=== PATIENT | female | born 1980 | race Caucasian/White ===

== ENCOUNTER 2017-03-26 10:00 | Emergency (ER) | payer OTHER ==
[2017-03-26 10:07] VITALS: BP 134/76
--- NOTE | 2017-03-26 13:53 | UC ---
Skin Complaint HPI - HPI Summary HPI Summary: Patient presents with L middle finger swelling and redness at the base of the nail bed. 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 Hx of paronychias which she attempts to drain at home. She states this is becoming more painful, but is not fluctuant and cannot be drained. - History of Current Complaint Chief Complaint: UCUpperExtremity Time Seen by Provider: 03/26/17 11:08 Stated Complaint: SWOLLEN FINGER Hx Obtained From: Patient Hx Last Menstrual Period: 08/15/16 ?: No Onset/Duration: Sudden Onset Timing: Constant Onset Severity: Mild Current Severity: Mild Pain Intensity: 2 Pain Scale Used: 0-10 Numeric Location: Hand (Left) Character: Swelling, Pruritus, Pain Aggravating: Nothing Alleviating: Nothing Associated Signs & Symptoms: Positive: Joint Swelling Related History: Trauma - Allergy/Home Medications Allergies/Adverse Reactions: Allergies Allergy/AdvReac Type Severity Reaction Status Date / Time Amoxicillin Allergy Severe Rash Verified 08/21/16 20:48 Review of Systems Constitutional: Negative Skin: Other - erythema and swelling at base of the 3rd finger ENT: Negative Respiratory: Negative Cardiovascular: Negative Motor: Negative Musculoskeletal: Negative Neurological: Negative All Other Systems Reviewed And Are Negative: Yes PMH/Surg Hx/FS Hx/Imm Hx Previously Healthy: Yes - Surgical History Surgical History: Yes Surgery Procedure, Year, and Place: CERVICAL VERTEBRAE FUSION SURGERY 2009 - Family History Known Family History: Positive: Diabetes, Other - CHOLESTEROL - Social History Occupation: Employed Full-time Lives: With Family Alcohol Use: Occasionally Substance Use Type: None Smoking Status (MU): Never Smoked Tobacco - Immunization History Most Recent Influenza Vaccination: none Physical Exam Triage Information Reviewed: Yes Appearance: Well-Appearing, No Pain Distress, Well-Nourished Vital Signs: Initial Vital Signs Temp 98.0 F 03/26/17 10:03 Pulse 78 03/26/17 10:03 Resp 18 03/26/17 10:03 BP 134/76 03/26/17 10:03 Pulse Ox 100 03/26/17 10:03 Vital Signs Reviewed: Yes Eye Exam: Normal Eyes: Positive: Conjunctiva Clear Neck exam: Normal Neck: Positive: Supple, Nontender, No Lymphadenopathy Respiratory Exam: Normal Respiratory: Positive: Chest non-tender, Lungs clear Cardiovascular Exam: Normal Cardiovascular: Positive: RRR Musculoskeletal Exam: Normal Musculoskeletal: Positive: Strength Intact Neurological Exam: Normal Neurological: Positive: Alert Psychological: Positive: Normal Response To Family, Age Appropriate Behavior Skin: Positive: Other - erythema and swelling at base of the nail Course/Dx - Course Course Of Treatment: Keflex given for paronychia unable to drain with no fluctuance. - Differential Diagnoses - Skin Complaint Differential Diagnoses: Cellulitis, Other - paronychia, infection, cellulitis - Diagnoses Provider Diagnoses: paronychia Discharge - Discharge Plan Condition: Stable Disposition: HOME Prescriptions: Cephalexin CAP* [Keflex CAP*] 500 mg PO QID #28 cap MDD 4 Patient Education Materials: Paronychia (ED) Referrals: Mima Roca MD [Primary Care Provider] - Additional Instructions: Follow up with PCP. If symptoms worsen, come back to ED or come back to UC. Avoid biting your nail.s Warm soaks or compresses will help.
== END 2017-03-26 11:28 | disposition home or self-care (01) ==
LOC: UCEAST 10:00
DX: L03.012 Cellulitis of left finger (principal)
CPT/HCPCS: 99212; G0463

== ENCOUNTER 2017-03-29 12:57 | Emergency (ER) | payer OTHER ==
--- NOTE | 2017-03-29 13:42 | UC ---
Hand/Wrist HPI - HPI Summary HPI Summary: Seen here for redness and pain around finger nail of L 3rd finger 3 days ago. There was no fluctuant area at that time so she was placed on oral abx only. Here with increasing swelling and pain. Has been taking keflex. - History Of Current Complaint Chief Complaint: UCSkin Stated Complaint: SOFT TISSUE RECHECK Time Seen by Provider: 03/29/17 13:03 Hx Obtained From: Patient Hx Last Menstrual Period: now ?: No Onset/Duration: Gradual Onset, Lasting Days Severity Initially: Mild Severity Currently: Mild Character Of Pain: Aching, Throbbing Alleviating: Nothing Associated Signs And Symptoms: Positive: Swelling, Redness - Allergies/Home Medications Allergies/Adverse Reactions: Allergies Allergy/AdvReac Type Severity Reaction Status Date / Time Amoxicillin Allergy Severe Rash Verified 03/29/17 13:11 PMH/Surg Hx/FS Hx/Imm Hx - Surgical History Surgical History: Yes Surgery Procedure, Year, and Place: CERVICAL [place]TEBRAE FUSION SURGERY 2009 - Family History Known Family History: Positive: Diabetes, Other - CHOLESTEROL - Social History Lives: With Family Alcohol Use: Occasionally Substance Use Type: None Smoking Status (MU): Unknown if Ever Smoked - Immunization History Most Recent Influenza Vaccination: none Review of Systems Constitutional: Negative Skin: Other - redness, swelling L 3rd finger Eyes: Negative ENT: Negative Respiratory: Negative Cardiovascular: Negative Gastrointestinal: Negative Genitourinary: Negative Motor: Negative Neurovascular: Negative Musculoskeletal: Negative Neurological: Negative Psychological: Negative All Other Systems Reviewed And Are Negative: Yes Physical Exam Triage Information Reviewed: Yes Appearance: Well-Appearing, No Pain Distress, Well-Nourished Vital Signs: Initial Vital Signs Pulse 71 03/29/17 12:59 Resp 20 03/29/17 12:59 BP 146/90 03/29/17 12:59 Pulse Ox 99 03/29/17 12:59 Vital Signs Reviewed: Yes Eye Exam: Normal Eyes: Positive: Conjunctiva Clear ENT Exam: Normal ENT: Positive: Normal ENT inspection, Hearing grossly normal, Pharynx normal, TMs normal Dental Exam: Normal Neck exam: Normal Neck: Positive: Supple, Nontender, No Lymphadenopathy Respiratory Exam: Normal Respiratory: Positive: Chest non-tender, Lungs clear, Normal breath sounds, No respiratory distress, No accessory muscle use Cardiovascular Exam: Normal Cardiovascular: Positive: RRR, No Murmur Musculoskeletal Exam: Normal Musculoskeletal: Positive: Strength Intact, ROM Intact Neurological Exam: Other - pt became briefly unresponsive after drainage of paronychia with muscle twitching and temporary paleness. Within 5 minutes pt reports no longer feeling dizzy, normal VS, and color returned Neurological: Positive: Alert Psychological Exam: Normal Skin Exam: Other - swelling, red, fluctuant paronychia on L 3rd finger, abscess manually expressed on exam with large pus return. Hand/Wrist Course/Dx - Differential Dx/Diagnosis Provider Diagnoses: L 3rd finger paronychia drainage. vasovagal syncope. elevated blood pressure due to pain Discharge - Discharge Plan Condition: Stable Disposition: HOME Patient Education Materials: Paronychia (ED), Syncope (ED) Referrals: Mima Roca MD [Primary Care Provider] - If Needed Additional Instructions: You can finish your antibiotics as prescribed. I recommend you do warm soaks to the area 4 times per day for the next 2-3 days -- your symptoms should resolve now that the infection is drained. Come back here if you have increasing redness, pain, or streaking up the finger. Your fainting spell was a very common reaction to medical procedures and does not indicate any deeper problems. You should be seen again if you have new or ongoing dizziness or fainting.
[2017-03-29 13:57] VITALS: BP 115/73
== END 2017-03-29 13:49 | disposition home or self-care (01) ==
LOC: UCEAST 12:57
DX: L03.012 Cellulitis of left finger (principal); R55 Syncope and collapse; R03.0 Elevated blood-pressure reading, without diagnosis of hypertension; Z88.1 Allergy status to other antibiotic agents
CPT/HCPCS: 99211; G0463

== ENCOUNTER 2017-09-20 09:39 | Emergency (ER) | payer OTHER ==
[2017-09-20 09:56] VITALS: BP 138/72
--- NOTE | 2017-09-20 10:49 | UC ---
Throat Pain/Nasal Kan HPI - HPI Summary HPI Summary: TWO MONTHS SINUS CONGESTION, COUGH, SORETHROAT, CHILLS, RUNNY NOSE. BEGAN ALLERGIES, NO GETTING WORSE. - History of Current Complaint Chief Complaint: UCGeneralIllness Stated Complaint: RESP ISSUE Time Seen by Provider: 09/20/17 10:24 Hx Obtained From: Patient Hx Last Menstrual Period: now Onset/Duration: Gradual Onset Severity: Moderate Cough: Nonproductive Associated Signs & Symptoms: Positive: Sinus Discomfort, Nasal Discharge - Epiglottits Risk Factors Epiglottis Risk Factors: Negative - Allergies/Home Medications Allergies/Adverse Reactions: Allergies Allergy/AdvReac Type Severity Reaction Status Date / Time Amoxicillin Allergy Severe Rash Verified 03/29/17 13:11 PMH/Surg Hx/FS Hx/Imm Hx Previously Healthy: Yes - Surgical History Surgical History: Yes Surgery Procedure, Year, and Place: CERVICAL [place]TEBRAE FUSION SURGERY 2009 - Family History Known Family History: Positive: Diabetes, Other - CHOLESTEROL - Social History Occupation: Employed Full-time Lives: With Family Alcohol Use: Occasionally Substance Use Type: None Smoking Status (MU): Never Smoked Tobacco - Immunization History Most Recent Influenza Vaccination: none Review of Systems Constitutional: Chills Skin: Negative Eyes: Negative ENT: Nasal Discharge, Sinus Congestion, Sinus Pain/Tenderness Respiratory: Cough Cardiovascular: Negative Gastrointestinal: Negative Genitourinary: Negative Motor: Negative Neurovascular: Negative Musculoskeletal: Negative Neurological: Negative Psychological: Negative Is Patient Immunocompromised?: No All Other Systems Reviewed And Are Negative: Yes Physical Exam Triage Information Reviewed: Yes Appearance: Well-Appearing, No Pain Distress, Well-Nourished Vital Signs: Initial Vital Signs Temp 98 F 09/20/17 09:51 Pulse 62 09/20/17 09:51 BP 138/72 09/20/17 09:51 Pulse Ox 100 09/20/17 09:51 Vital Signs Reviewed: Yes Eye Exam: Normal ENT: Positive: Nasal congestion, Nasal drainage, TM bulging, TM dull Dental Exam: Normal Neck: Positive: Supple, Nontender, Enlarged Nodes @ - ANTERIOR CERVICAL CHAIN Respiratory Exam: Other - COUGH Respiratory: Positive: Chest non-tender, Lungs clear, Normal breath sounds, No respiratory distress, No accessory muscle use Cardiovascular Exam: Normal Cardiovascular: Positive: RRR, No Murmur, Pulses Normal, Brisk Capillary Refill Abdominal Exam: Normal Musculoskeletal Exam: Normal Musculoskeletal: Positive: Strength Intact Neurological Exam: Normal Psychological Exam: Normal Skin Exam: Normal Throat Pain/Nasal Course/Dx - Differential Dx/Diagnosis Differential Diagnosis/HQI/PQRI: Pharyngitis, Sinusitis, Tonsillitis Provider Diagnoses: SINUSITIS Discharge - Discharge Plan Condition: Stable Disposition: HOME Prescriptions: Benzonatate CAP* [Tessalon 100 MG CAP*] 100 mg PO TID PRN #15 cap PRN Reason: Cough DOXYcycline CAP(*) [DOXYcycline 100MG CAP(*)] 100 mg PO BID #20 cap Patient Education Materials: Sinusitis (ED), Acute Bronchitis (ED) Referrals: Mima Roca MD [Primary Care Provider] -
== END 2017-09-20 10:51 | disposition home or self-care (01) ==
LOC: UCEAST 09:39
DX: J32.9 Chronic sinusitis, unspecified (principal); Z88.1 Allergy status to other antibiotic agents
CPT/HCPCS: 99212; G0463

== ENCOUNTER 2021-11-23 16:52 | Inpatient (IN) ==
[2021-11-23 18:17] LABS: ABS Basophils 0.1 10^3/ul (0-0.2); ABS Eosinophils 0.6 10^3/ul (0-0.6); ABS Lymphocytes 2.2 10^3/ul (1.0-4.8); ABS Monocytes 1.1 10^3/ul (0-0.8); ABS Neutrophils 13.1 10^3/ul (1.5-7.7); Eosinophil % 3.6 %; Hematocrit 41 % (35-47); Hemoglobin 14.1 g/dL (12.0-16.0); Lymphocyte % 12.8 %; Mean Corpuscular HGB Conc 34 g/dL (31-36); Mean Corpuscular Hemoglobin 29 pg (27-31); Mean Corpuscular Volume 86 fL (80-97); Mean Platelet Volume 7.1 fL (7.4-10.4); Platelet Count 288 10^3/uL (150-450); Red Blood Count 4.82 10^6 /uL (3.70-4.87); Red Cell Distribution Width 15 % (10-15); White Blood Count 17.2 10^3/uL (3.5-10.8)
[2021-11-23 18:23] LABS: INR 1.12 (0.86-1.15)
[2021-11-23 18:33] LABS: Albumin 4.4 g/dL (3.2-5.2); Albumin/Globulin Ratio 1.3 (1-3); Calcium 9.6 mg/dL (8.6-10.3); Globulin 3.5 g/dL (2-4); Potassium 4.4 mmol/L (3.5-5.0); Total Bilirubin 0.8 mg/dL (0.2-1.0); Total Protein 7.9 g/dL (6.4-8.9); eGFR CKD-EPI 70.9 (>60)
[2021-11-23] MEDS ORDERED: Iohexol 350 (CONTRAST) 500 ML MDV IV ONE (19:30)
[2021-11-23] MEDS: Heparin DRIP 25,000 UNITS BAG 25,000 UNITS/500 ML BAG IV SCH (20:20)
[2021-11-23] MEDS: Heparin 5000 UNITS/ML 1 mL VIAL IV SCH (20:21)
[2021-11-23 20:29] LABS: Activated Partial Thrombo Time 30.7 seconds (26.0-38.0)
[2021-11-24 01:36] LABS: C Reactive Protein 144.37 mg/L (<8.01)
[2021-11-24] MEDS ORDERED: Ondansetron 4 mg VIAL 2 MG/ML 2 ml VIAL IV PRN (02:34)
[2021-11-24 07:59] LABS: ABS Basophils 0.1 10^3/ul (0-0.2); ABS Eosinophils 0.5 10^3/ul (0-0.6); ABS Lymphocytes 2.1 10^3/ul (1.0-4.8); ABS Neutrophils 10.5 10^3/ul (1.5-7.7); Eosinophil % 3.2 %; Hematocrit 38 % (35-47); Hemoglobin 12.9 g/dL (12.0-16.0); Lymphocyte % 14.8 %; Mean Corpuscular HGB Conc 34 g/dL (31-36); Mean Corpuscular Hemoglobin 29 pg (27-31); Mean Corpuscular Volume 86 fL (80-97); Mean Platelet Volume 7.3 fL (7.4-10.4); Platelet Count 263 10^3/uL (150-450); Red Blood Count 4.47 10^6 /uL (3.70-4.87); Red Cell Distribution Width 15 % (10-15); White Blood Count 14.1 10^3/uL (3.5-10.8)
[2021-11-24 08:16] LABS: Albumin 3.9 g/dL (3.2-5.2); Albumin/Globulin Ratio 1.3 (1-3); Calcium 9.1 mg/dL (8.6-10.3); Globulin 3.1 g/dL (2-4); Total Bilirubin 0.7 mg/dL (0.2-1.0); eGFR CKD-EPI 79.2 (>60)
[2021-11-24] MEDS ORDERED: Iohexol 350 (CONTRAST) 500 ML MDV IV ONE ×2 (08:16→12:25)
[2021-11-24] MEDS: Multivitamins/Minerals TAB PO SCH (09:14)
[2021-11-24] MEDS: cefTRIAXone 1 gm/50 mL NS BAG 1 GM/50 ML BAG IVPB SCH (09:18)
[2021-11-24] MEDS: Heparin DRIP 25,000 UNITS BAG 25,000 UNITS/500 ML BAG IV SCH ×3 (14:30→16:09)
[2021-11-24] MEDS: Heparin 5000 UNITS/ML 1 mL VIAL IV SCH (16:06)
[2021-11-25 04:24] LABS: ABS Basophils 0.1 10^3/ul (0-0.2); ABS Eosinophils 0.7 10^3/ul (0-0.6); ABS Lymphocytes 3.4 10^3/ul (1.0-4.8); ABS Neutrophils 6.8 10^3/ul (1.5-7.7); Eosinophil % 5.5 %; Hematocrit 38 % (35-47); Hemoglobin 12.8 g/dL (12.0-16.0); Lymphocyte % 28.6 %; Mean Corpuscular HGB Conc 34 g/dL (31-36); Mean Corpuscular Hemoglobin 29 pg (27-31); Mean Corpuscular Volume 85 fL (80-97); Mean Platelet Volume 7.3 fL (7.4-10.4); Platelet Count 256 10^3/uL (150-450); Red Blood Count 4.47 10^6 /uL (3.70-4.87); Red Cell Distribution Width 15 % (10-15)
[2021-11-25 04:40] LABS: C Reactive Protein 210.12 mg/L (<8.01); Calcium 9.3 mg/dL (8.6-10.3); Potassium 3.8 mmol/L (3.5-5.0); eGFR CKD-EPI 83.5 (>60)
[2021-11-25] MEDS ORDERED: fentaNYL 100 mcg/2 ml 50 MCG/ML VIAL ONE ×4 (07:49→10:23)
[2021-11-25] MEDS ORDERED: Midazolam 5 mg/5 ml VIAL 1 mg/ml 5 ml VIAL (5 mg) ONE ×2 (07:49→11:03)
[2021-11-25] MEDS ORDERED: Heparin DRIP 25,000 UNITS BAG 25,000 UNITS/500 ML BAG ONE (07:49)
[2021-11-25] MEDS ORDERED: Lidocaine 1% VIAL 10 MG/ML VIAL ONE (08:00)
[2021-11-25] MEDS ORDERED: Iohexol 350 (CONTRAST) 200 ML MDV IV ONE (08:01)
[2021-11-25] MEDS ORDERED: Heparin 2 UNITS/ML IVPREMIX 2,000 UNIT/1,000 ML BAG IV ONE (08:01)
[2021-11-25] MEDS: cefTRIAXone 1 gm/50 mL NS BAG 1 GM/50 ML BAG IVPB SCH (08:10)
[2021-11-25] MEDS: Heparin DRIP 25,000 UNITS BAG 25,000 UNITS/500 ML BAG IV SCH (08:16)
[2021-11-25] MEDS ORDERED: Heparin 1,000 UNIT/ML 10 ml (10,000 UNITS) CATHLAB/DIALYSIS ONE ×2 (08:21→10:45)
[2021-11-25] MEDS ORDERED: Heparin 2 UNITS/ML IVPREMIX 1,000 UNIT/500 ML BAG IV ONE (09:42)
[2021-11-25] MEDS ORDERED: Ondansetron 4 mg VIAL 2 MG/ML 2 ml VIAL ONE (13:20)
[2021-11-25] MEDS: Multivitamins/Minerals TAB PO SCH (14:55)
[2021-11-26] MEDS: Heparin DRIP 25,000 UNITS BAG 25,000 UNITS/500 ML BAG IV SCH ×2 (01:05→16:43)
[2021-11-26 04:44] LABS: ABS Basophils 0.1 10^3/ul (0-0.2); ABS Eosinophils 0.6 10^3/ul (0-0.6); ABS Lymphocytes 2.4 10^3/ul (1.0-4.8); ABS Monocytes 0.8 10^3/ul (0-0.8); ABS Neutrophils 7.3 10^3/ul (1.5-7.7); Eosinophil % 5.5 %; Hematocrit 35 % (35-47); Hemoglobin 11.4 g/dL (12.0-16.0); Lymphocyte % 21.3 %; Mean Corpuscular HGB Conc 33 g/dL (31-36); Mean Corpuscular Hemoglobin 28 pg (27-31); Mean Corpuscular Volume 86 fL (80-97); Mean Platelet Volume 7.3 fL (7.4-10.4); Platelet Count 227 10^3/uL (150-450); Red Blood Count 4.07 10^6 /uL (3.70-4.87); Red Cell Distribution Width 15 % (10-15); White Blood Count 11.1 10^3/uL (3.5-10.8)
[2021-11-26] MEDS: cefTRIAXone 1 gm/50 mL NS BAG 1 GM/50 ML BAG IVPB SCH (07:56)
[2021-11-26] MEDS: Multivitamins/Minerals TAB PO SCH (07:56)
[2021-11-26 08:39] LABS: ABS Basophils 0.1 10^3/ul (0-0.2); ABS Eosinophils 0.6 10^3/ul (0-0.6); ABS Lymphocytes 1.9 10^3/ul (1.0-4.8); ABS Monocytes 0.9 10^3/ul (0-0.8); ABS Neutrophils 7.6 10^3/ul (1.5-7.7); Eosinophil % 5.8 %; Hematocrit 35 % (35-47); Hemoglobin 11.6 g/dL (12.0-16.0); Lymphocyte % 17.2 %; Mean Corpuscular HGB Conc 33 g/dL (31-36); Mean Corpuscular Hemoglobin 28 pg (27-31); Mean Corpuscular Volume 85 fL (80-97); Mean Platelet Volume 7.4 fL (7.4-10.4); Platelet Count 233 10^3/uL (150-450); Red Cell Distribution Width 15 % (10-15); White Blood Count 11.1 10^3/uL (3.5-10.8)
[2021-11-27] MEDS: Multivitamins/Minerals TAB PO SCH (08:31)
[2021-11-27] MEDS: Heparin DRIP 25,000 UNITS BAG 25,000 UNITS/500 ML BAG IV SCH (09:35)
[2021-11-28] MEDS: Heparin DRIP 25,000 UNITS BAG 25,000 UNITS/500 ML BAG IV SCH (02:59)
[2021-11-28 05:26] LABS: ABS Basophils 0.1 10^3/ul (0-0.2); ABS Eosinophils 0.7 10^3/ul (0-0.6); ABS Lymphocytes 2.8 10^3/ul (1.0-4.8); ABS Monocytes 0.5 10^3/ul (0-0.8); ABS Neutrophils 4.3 10^3/ul (1.5-7.7); Eosinophil % 8.4 %; Hematocrit 33 % (35-47); Hemoglobin 10.9 g/dL (12.0-16.0); Lymphocyte % 33.9 %; Mean Corpuscular HGB Conc 33 g/dL (31-36); Mean Corpuscular Hemoglobin 29 pg (27-31); Mean Corpuscular Volume 87 fL (80-97); Mean Platelet Volume 7.3 fL (7.4-10.4); Platelet Count 259 10^3/uL (150-450); Red Blood Count 3.82 10^6 /uL (3.70-4.87); Red Cell Distribution Width 15 % (10-15); White Blood Count 8.4 10^3/uL (3.5-10.8)
[2021-11-28 05:32] LABS: C Reactive Protein 104.1 mg/L (<8.01); Calcium 8.9 mg/dL (8.6-10.3); Potassium 3.6 mmol/L (3.5-5.0); eGFR CKD-EPI 112.1 (>60)
[2021-11-28] MEDS ORDERED: Midazolam 5 mg/5 ml VIAL 1 mg/ml 5 ml VIAL (5 mg) ONE ×2 (08:26→10:29)
[2021-11-28] MEDS ORDERED: fentaNYL 100 mcg/2 ml 50 MCG/ML VIAL ONE ×3 (08:26→10:27)
[2021-11-28] MEDS ORDERED: Heparin 2 UNITS/ML IVPREMIX 2,000 UNIT/1,000 ML BAG IV ONE (08:27)
[2021-11-28] MEDS ORDERED: Iohexol 350 (CONTRAST) 200 ML MDV IV ONE (08:27)
[2021-11-28] MEDS ORDERED: Lidocaine 1% VIAL 10 MG/ML VIAL ONE (08:27)
[2021-11-28] MEDS ORDERED: Heparin 2 UNITS/ML IVPREMIX 1,000 UNIT/500 ML BAG IV ONE (08:35)
[2021-11-28] MEDS: Multivitamins/Minerals TAB PO SCH (11:51)
[2021-11-29] MEDS: Multivitamins/Minerals TAB PO SCH (10:29)
[2021-11-29 12:25] VITALS: BP 121/71
== END 2021-11-29 11:55 | disposition home or self-care (01) | DRG 169 ==
LOC: ED 16:52 → SUATTDRO 11-24 07:28 → EDHOLD 11-24 07:28 → MEDTELE 11-24 08:49
PROVIDERS: ADMIT Internal Medicine; ATTEND Hospitalist